=== PATIENT | male | born 1995 | race Caucasian/White ===

== ENCOUNTER 2022-11-06 07:54 | Outpatient (CLI) | payer BC, SELFPAY ==
--- NOTE | ~2022-11-06 | US_ITS ---
Limited Abdominal Sonogram: Real-time sonographic imaging of the right upper quadrant was performed. Clinical History: Abnormal serum enzymes Findings: The liver appears echogenic, with no evidence of mass lesion or bile duct dilatation. Main portal vein demonstrates normal direction of flow. The gallbladder is well distended, and appears no rmal with no evidence of gallstone or wall thickening. The common bile duct measures 5 mm. The visua lized pancreas, aorta, and IVC are unremarkable. Impression: Diffuse fatty infiltration of liver. Reviewed, dictated and finalized at location M. INSTRUCTOR Impression: Diffuse fatty infiltration of liver.
== END 2022-11-06 07:55 | disposition home or self-care (01) ==
PROVIDERS: PCP Family Medicine; Visit Provider Physician Assistant
DX: R74.8 Abnormal levels of other serum enzymes (principal); K76.0 Fatty (change of) liver, not elsewhere classified
CPT/HCPCS: 76705